=== PATIENT | female | born 1990 | race Caucasian/White ===

== ENCOUNTER → 2020-02-22 06:45 | Observation (INO) ==
[2020-02-21 22:44] LABS: Basophils % 0.3 %; Eosinophils # 0.1 K/mcL (0.0-0.6); Eosinophils % 0.9 %; Hematocrit 39.5 % (35.3-44.9); Hemoglobin 13.3 g/dL (11.5-15.4); Immature Granulocytes % 0.5 % (0-4); Lymphocytes # 3.1 K/mcL (0.6-4.6); Lymphocytes % 22.4 %; Mean Corpuscular HGB Conc 33.7 g/dL (31.6-35.5); Mean Corpuscular Hemoglobin 28.7 pg (28.0-33.3); Mean Corpuscular Volume 85.3 fL (83.0-100.0); Mean Platelet Volume 12.3 fL (9.4-12.4); Monocytes # 0.9 K/mcL (0.0-1.3); Monocytes % 6.3 %; Neutrophils # 9.5 K/mcL (1.6-8.9); Platelet Count 227 K/mcL (140-400); Red Blood Count 4.63 M/mcL (3.82-4.97); Red Cell Distribution Width 12.7 % (11.5-14.5); Segmented Neutrophils % 69.6 %; White Blood Count 13.6 K/mcL (4.3-11.1)
[2020-02-21 22:47] LABS: Protein/Creatinine Ratio,Urine 0.19 mg/mg (0.00-0.20)
[2020-02-21 22:59] LABS: Alanine Aminotransferase 15 Units/L (7-52); Aspartate Amino Transferase 13 Units/L (13-39); BUN/Creatinine Ratio 15 (6-26); Blood Urea Nitrogen 8 mg/dL (6-20); Lactate Dehydrogenase 147 Units/L (140-271); eGFR For African Americans > 60 (> 60); eGFR For Non-African Americans > 60 (> 60)
[~2020-02-22 06:45] MED LIST: Acetaminophen 325 MG TABLET PO PRN
== END | disposition home or self-care (01) ==
LOC: 1NENULAB
PROVIDERS: ADMIT Advanced Practice Midwife; ATTEND Advanced Practice Midwife

== ENCOUNTER 2020-03-02 11:39 | Inpatient (IN) ==
[2020-03-02] MEDS ORDERED: *HR* Labetalol 20 MG/4 ML SYRINGE IVP ONE ×3 (12:24→13:37)
[2020-03-02 13:00] LABS: Basophils % 0.4 %; Eosinophils # 0.2 K/mcL (0.0-0.6); Eosinophils % 1.4 %; Hematocrit 38.8 % (35.3-44.9); Hemoglobin 12.9 g/dL (11.5-15.4); Immature Granulocytes % 0.4 % (0-4); Lymphocytes # 2.4 K/mcL (0.6-4.6); Lymphocytes % 21.1 %; Mean Corpuscular HGB Conc 33.2 g/dL (31.6-35.5); Mean Corpuscular Hemoglobin 28.7 pg (28.0-33.3); Mean Corpuscular Volume 86.2 fL (83.0-100.0); Mean Platelet Volume 12.3 fL (9.4-12.4); Monocytes # 0.8 K/mcL (0.0-1.3); Monocytes % 7.3 %; Neutrophils # 7.8 K/mcL (1.6-8.9); Platelet Count 200 K/mcL (140-400); Red Cell Distribution Width 12.8 % (11.5-14.5); Segmented Neutrophils % 69.4 %; White Blood Count 11.2 K/mcL (4.3-11.1)
[2020-03-02] MEDS ORDERED: Betamethasone Acet/SodPhos 30 MG/5 ML VIAL IM SCH (13:15)
[2020-03-02 14:00] LABS: Protein/Creatinine Ratio,Urine 0.23 mg/mg (0.00-0.20)
[2020-03-02 14:13] LABS: Alanine Aminotransferase 12 Units/L (7-52); Aspartate Amino Transferase 16 Units/L (13-39); BUN/Creatinine Ratio 23 (6-26); Blood Urea Nitrogen 12 mg/dL (6-20); Lactate Dehydrogenase 157 Units/L (140-271); Uric Acid 5.9 mg/dL (2.3-7.6); eGFR For African Americans > 60 (> 60); eGFR For Non-African Americans > 60 (> 60)
[2020-03-02] MEDS ORDERED: Ringers Solution, Lactated 1,000 ML ONE (14:37)
[2020-03-02] MEDS: Magnesium Sulf 20 gm/SW 500mL 20 GM/500 ML IV.SOLN IVC SCH ×2 (14:39→15:26)
[2020-03-02] MEDS ORDERED: Calcium Gluconate 1,000 MG/10 ML VIAL ONE (15:03)
[2020-03-02 15:14] LABS: Influenza A PCR Negative (Negative); Influenza B PCR Negative (Negative); Resp. Syncytial Virus PCR Negative (Negative)
[2020-03-02] MEDS ORDERED: Ondansetron 4 MG/2 ML VIAL IVP PRN ×3 (15:15→20:47)
[2020-03-02] MEDS ORDERED: Ondansetron 4 MG/2 ML VIAL ONE (15:17)
[2020-03-02 15:47] LABS: SARS-CoV-2 by PCR (In House) Negative (Negative)
[2020-03-02] MEDS ORDERED: Oxytocin 20 units/ LR 1000 mL 20 UNIT/1,000 ML BAG IVC ONE (16:18)
[2020-03-02] MEDS ORDERED: Famotidine 20 MG/2 ML VIAL IVP ONE (16:18)
[2020-03-02] MEDS ORDERED: Metoclopramide 10 MG/2 ML VIAL IVP ONE (16:18)
[2020-03-02] MEDS ORDERED: CeFAZolin 2,000 MG/50 ML BAG IVPB ONE (16:18)
[2020-03-02] MEDS ORDERED: Ringers Solution, Lactated 1,000 ML IVC SCH (16:30)
[2020-03-02] MEDS ORDERED: *HR* FentaNYL (PF) 100 MCG/2 ML VIAL ONE ×2 (16:38→17:48)
[2020-03-02] MEDS ORDERED: *HR* Morphine Sulfate/PF 10 MG/10 ML AMPUL ONE (16:38)
[2020-03-02] MEDS ORDERED: *HR* Phenylephrine 10 MG/ML VIAL ONE (16:39)
[2020-03-02 17:03] LABS: Amphetamine Screen,Urine Negative ng/mL (Cutoff=1000); Barbiturate Screen,Urine Negative ng/mL (Cutoff=200); Benzodiazepines Screen,Urine Negative ng/mL (Cutoff=200); Cannabinoid Screen,Urine Negative ng/mL (Cutoff = 50); Cocaine Screen,Urine Negative ng/mL (Cutoff= 300); Opiate Screen,Urine Negative ng/mL (Cutoff=300); Phencyclidine Screen,Urine Negative ng/mL (Cutoff=25)
[2020-03-02] MEDS ORDERED: *HR* HYDROmorphone PF 0.5 MG/0.5 ML SYRINGE IVP PRN (17:40)
[2020-03-02] MEDS ORDERED: Acetaminophen IV 1,000 MG/100 ML BAG IVPB ONE (17:43)
[2020-03-02] MEDS ORDERED: Calcium Gluconate 1,000 MG/10 ML VIAL IVP PRN (20:47)
[2020-03-02] MEDS ORDERED: Simethicone 80 MG TAB.CHEW PO PRN (20:47)
[2020-03-02] MEDS ORDERED: Metoclopramide 10 MG/2 ML VIAL IVP PRN (20:47)
[2020-03-02] MEDS ORDERED: Sennosides 8.6 MG TABLET PO PRN (20:47)
[2020-03-02] MEDS ORDERED: Oxytocin 20 units/ LR 1000 mL 20 UNIT/1,000 ML BAG IVC SCH (20:47)
[2020-03-02] MEDS ORDERED: *HR* OxyCODONE/APAP 5/325 TABLET PO PRN (20:47)
[2020-03-02] MEDS ORDERED: *HR* OxyCODONE/APAP 10/325 TABLET PO PRN (20:47)
[2020-03-02] MEDS: cephALEXin 500 MG CAPSULE PO SCH (21:14)
[2020-03-02] MEDS: metroNIDAZOLE 500 MG TABLET PO SCH (21:15)
[2020-03-03] MEDS: Magnesium Sulf 20 gm/SW 500mL 20 GM/500 ML IV.SOLN IVC SCH ×2 (01:57→11:37)
[2020-03-03 05:20] LABS: Basophils % 0.1 %; Hematocrit 37.9 % (35.3-44.9); Hemoglobin 12.8 g/dL (11.5-15.4); Lymphocytes # 1.3 K/mcL (0.6-4.6); Lymphocytes % 6.9 %; Mean Corpuscular HGB Conc 33.8 g/dL (31.6-35.5); Mean Corpuscular Hemoglobin 29.6 pg (28.0-33.3); Mean Corpuscular Volume 87.5 fL (83.0-100.0); Mean Platelet Volume 11.6 fL (9.4-12.4); Monocytes % 2.8 %; Neutrophils # 17.3 K/mcL (1.6-8.9); Platelet Count 204 K/mcL (140-400); Red Blood Count 4.33 M/mcL (3.82-4.97); Red Cell Distribution Width 12.9 % (11.5-14.5); Segmented Neutrophils % 89.2 %
[2020-03-03 05:26] LABS: Monocytes # 0.5 K/mcL (0.0-1.3); White Blood Count 19.4 K/mcL (4.3-11.1)
[2020-03-03 05:30] LABS: Creatinine,Urine 13 mg/dL
[2020-03-03 05:40] LABS: Alanine Aminotransferase 14 Units/L (7-52); Aspartate Amino Transferase 16 Units/L (13-39); BUN/Creatinine Ratio 14 (6-26); Blood Urea Nitrogen 9 mg/dL (6-20); Lactate Dehydrogenase 153 Units/L (140-271); Magnesium 5.5 mg/dL (1.6-2.6); Uric Acid 5.9 mg/dL (2.3-7.6); eGFR For African Americans > 60 (> 60); eGFR For Non-African Americans > 60 (> 60)
[2020-03-03] MEDS: metroNIDAZOLE 500 MG TABLET PO SCH ×3 (08:15→21:12)
[2020-03-03] MEDS: cephALEXin 500 MG CAPSULE PO SCH ×3 (08:18→21:12)
[2020-03-03] MEDS: Prenatal Vit/FA 1 EACH TABLET PO SCH (08:18)
[2020-03-03] MEDS ORDERED: NON-FORMULARY MEDICATION 1 EACH EACH (Pnv Cmb#21/Iron/Folic Acid [Prenatal Complete Caplet PO SCH (09:00)
[2020-03-03] MEDS: Ibuprofen 600 MG TABLET PO PRN (17:36)
[2020-03-04] MEDS ORDERED: Lanolin 7 G OINT...G. TP PRN (00:11)
[2020-03-04 05:40] LABS: Protein/Creatinine Ratio,Urine 0.19 mg/mg (0.00-0.20)
[2020-03-04] MEDS: metroNIDAZOLE 500 MG TABLET PO SCH ×2 (08:15→14:26)
[2020-03-04] MEDS: cephALEXin 500 MG CAPSULE PO SCH ×2 (08:15→14:26)
[2020-03-04] MEDS: Prenatal Vit/FA 1 EACH TABLET PO SCH (08:18)
[2020-03-04 17:15] LABS: Basophils % 0.2 %; Eosinophils # 0.1 K/mcL (0.0-0.6); Eosinophils % 0.4 %; Hematocrit 34.6 % (35.3-44.9); Immature Granulocytes % 0.6 % (0-4); Lymphocytes # 2.4 K/mcL (0.6-4.6); Lymphocytes % 19.1 %; Mean Corpuscular HGB Conc 31.8 g/dL (31.6-35.5); Mean Corpuscular Hemoglobin 28.8 pg (28.0-33.3); Mean Corpuscular Volume 90.6 fL (83.0-100.0); Mean Platelet Volume 11.5 fL (9.4-12.4); Monocytes # 0.9 K/mcL (0.0-1.3); Monocytes % 7.4 %; Platelet Count 174 K/mcL (140-400); Red Blood Count 3.82 M/mcL (3.82-4.97); Red Cell Distribution Width 13.5 % (11.5-14.5); Segmented Neutrophils % 72.3 %; White Blood Count 12.4 K/mcL (4.3-11.1)
[2020-03-04 17:30] LABS: Alanine Aminotransferase 12 Units/L (7-52); Aspartate Amino Transferase 13 Units/L (13-39); BUN/Creatinine Ratio 25 (6-26); Blood Urea Nitrogen 15 mg/dL (6-20); Lactate Dehydrogenase 146 Units/L (140-271); Uric Acid 5.6 mg/dL (2.3-7.6); eGFR For African Americans > 60 (> 60); eGFR For Non-African Americans > 60 (> 60)
[2020-03-04] MEDS: Acetaminophen 325 MG TABLET PO PRN (22:08)
[2020-03-05] MEDS: Prenatal Vit/FA 1 EACH TABLET PO SCH (08:11)
[2020-03-05] MEDS: Ibuprofen 600 MG TABLET PO PRN ×3 (08:12→22:18)
[2020-03-05] MEDS: NIFEdipine XL (24 HR) 30 MG TAB.ER.24 PO SCH (11:13)
[2020-03-05] MEDS: Acetaminophen 325 MG TABLET PO PRN (16:57)
[2020-03-06] MEDS: Ibuprofen 600 MG TABLET PO PRN (04:30)
[2020-03-06] MEDS: NIFEdipine XL (24 HR) 30 MG TAB.ER.24 PO SCH (08:01)
[2020-03-06] MEDS: Prenatal Vit/FA 1 EACH TABLET PO SCH (08:01)
[2020-03-06 11:31] VITALS: BP 123/79
== END 2020-03-06 12:30 | disposition home or self-care (01) | DRG 786 ==
LOC: 1NENULAB → OBSVTOIN 11:39 → 1NENUOBS 21:01
PROVIDERS: ADMIT Obstetrics & Gynecology; ATTEND Obstetrics & Gynecology